=== PATIENT | male | born 1955 | race Caucasian/White ===

== ENCOUNTER 2017-10-24 09:55 | Day surgery (SDC) | payer BC ==
[2017-10-24] MEDS ORDERED: SUCCINYLCHOLINE CHLORIDE 20 MG/ML SOL IV ONE (10:43)
[2017-10-24] MEDS ORDERED: ROCURONIUM BROMIDE 10 MG/ML SOL IV ONE (10:43)
[2017-10-24] MEDS ORDERED: PROPOFOL 10 MG/ML EMU IV ONE (10:46)
[2017-10-24] MEDS ORDERED: FENTANYL 100MCG/2ML SOL ONE ×2 (10:46→11:15)
[2017-10-24] MEDS ORDERED: LIDOCAINE HCL 1% MPF 30 SOL ONE (10:50)
[2017-10-24] MEDS: BUPIVACAINE LIPOSOME 20 ML SUS ONE ×2 (11:22→11:31)
[2017-10-24] MEDS ORDERED: EPHEDRINE SULFATE 50 MG/ML SOL ONE (11:28)
[2017-10-24 12:06] VITALS: O2SAT 98
[2017-10-24 12:28] VITALS: RESP 18; TEMP 97.3
[2017-10-24 13:35] VITALS: BP 143/98; PULSE 74
== END 2017-10-24 14:25 | disposition home or self-care (01) ==
LOC: SURG 09:55
PROVIDERS: ATTEND Surgery
DX: K64.8 Other hemorrhoids (principal); K64.4 Residual hemorrhoidal skin tags
CPT/HCPCS: 99001; J0330; J3010; J2001; J2704; J3490